=== PATIENT | male | born 2000 | race African-American/Black ===

== ENCOUNTER 2019-03-03 05:23 | Emergency (ER) | payer OTHER ==
[~2019-03-03] VITALS: Ht 167.6 cm; Wt 59.0 kg
[2019-03-03 06:28] LABS: ABSOLUTE NEUTROPHILS 3.6 thou/uL (1.4-8.2); BASOPHILS 0.7 % (0.0-2.0); EOSINOPHILS 3.7 % (0.0-3.0); HEMATOCRIT 43.5 % (42.0-52.0); HEMOGLOBIN 14.2 gm/dL (14.0-18.0); LYMPHOCYTES 27.5 % (24.0-44.0); MCHC 32.7 g/dL (28.0-37.0); MCV 91.7 fL (80.0-100.0); MONOCYTES 8.6 % (1.0-8.0); PLATELET COUNT 224 thou/uL (150-400); POLYS 59.5 % (36.0-66.0); RBC 4.74 mil/uL (4.50-6.00); RDW 14.2 % (10.5-14.5)
[2019-03-03 06:43] LABS: URINE BILIRUBIN NEGATIVE (Negative); URINE BLOOD TRACE (Negative); URINE CLARITY CLEAR; URINE COLOR YELLOW; URINE GLUCOSE-RANDOM* NEGATIVE (Negative); URINE KETONES NEGATIVE (Negative); URINE LEUKOCYTES-REFLEX NEGATIVE (Negative); URINE NITRITE-REFLEX NEGATIVE (Negative); URINE PROTEIN (DIPSTICK) NEGATIVE (Negative); URINE SPECIFIC GRAVITY >= 1.030 (1.005-1.035); URINE UROBILINOGEN 0.2 E.U./dl (0.2-1.0)
[2019-03-03 06:46] LABS: ANION GAP 7 mmol/L (7-16); BUN 18 mg/dL (7-18); CHLORIDE 101 mmol/L (98-107); CO2 30 mmol/L (21-32); CREATININE 0.9 mg/dL (0.7-1.3); GLUCOSE 94 mg/dL (74-106); POTASSIUM 3.9 mmol/L (3.5-5.1); SODIUM 138 mmol/L (136-145)
[2019-03-03 06:52] LABS: ALBUMIN 4.3 g/dL (3.4-5.0); DIRECT BILIRUBIN < 0.1 mg/dL (<0.1-0.3); LIPASE 45 U/L (73-393); SGOT 21 U/L (15-37); SGPT 30 U/L (30-65); TOTAL BILIRUBIN 0.2 mg/dL (<0.1-1.0); TOTAL PROTEIN 8.4 g/dL (6.4-8.2)
[2019-03-03] MEDS ORDERED: ZOFRAN4 MG PO (07:23)
[2019-03-03] MEDS ORDERED: OMEPRAZOLE 20 M20 M1 PO (07:23)
[2019-03-03 07:48] VITALS: BP 150/69
== END 2019-03-03 07:48 | disposition home or self-care (01) ==
LOC: ER 05:23
PROVIDERS: Emergency Medicine
DX: K29.70 Gastritis, unspecified, without bleeding (principal); R10.13 Epigastric pain